=== PATIENT | female | born 1970 | race Caucasian/White ===

== ENCOUNTER 2017-10-24 06:21 | Day surgery (SDC) | payer SELFPAY ==
[2017-10-23 09:05] VITALS: BMI 27.4
[2017-10-24] MEDS ORDERED: EPINEPHrine/PF 1 MG/1 ML (1:1,000) AMPULE ONE (07:16)
[2017-10-24] MEDS ORDERED: LIDOCAINE HCL 1%, 10 MG/ML (20ML VIAL) ONE (07:16)
[2017-10-24] MEDS ORDERED: ceFAZolin SODIUM 1 GM VIAL ONE ×3 (07:19→12:59)
[2017-10-24] MEDS ORDERED: BUPIVACAINE HCL/PF 0.25% (2.5MG/ML) 10 ML VIAL ONE (07:28)
[2017-10-24] MEDS ORDERED: BUPIVACAINE HCL/PF 0.5% (5MG/ML) 10 ML VIAL ONE (07:28)
[2017-10-24] MEDS ORDERED: ROCURONIUM BROMIDE 50 MG/5 ML VIAL ONE ×2 (07:55→09:34)
[2017-10-24] MEDS ORDERED: PROPOFOL 20 ML ONE (07:55)
[2017-10-24] MEDS ORDERED: MIDAZOLAM HCL 2 MG/2 ML SINGLE DOSE VIAL ONE (07:55)
[2017-10-24] MEDS ORDERED: SCOPOLAMINE HYDROBROMIDE 1 PATCH PATCH.TD72 ONE (07:55)
[2017-10-24] MEDS ORDERED: LIDOCAINE HCL/PF 2% SDV 5ML VIAL ONE (07:56)
[2017-10-24] MEDS ORDERED: HEPARIN NA (PORCINE) 5,000 UNITS/ML 1ML VIAL ONE (08:42)
[2017-10-24] MEDS ORDERED: ceFAZolin SODIUM 1 GM VIAL IVPB ONE ×3 (08:50→12:59)
[2017-10-24] MEDS ORDERED: SODIUM CHLORIDE 0.9% P/F 10 ML VIAL IJ ONE (08:50)
[2017-10-24] MEDS ORDERED: DEXAMETHASONE SOD PHOSPHATE 4 MG/1 ML VIAL ONE ×2 (08:56→14:06)
[2017-10-24] MEDS ORDERED: GENTAMICIN SO4 80 MG/2 ML VIAL ONE (09:04)
[2017-10-24] MEDS ORDERED: GENTAMICIN SO4 80 MG/2 ML VIAL IVPB ONE (12:30)
[2017-10-24] MEDS ORDERED: ACETAMINOPHEN INJECTION 100 ML IVPB ONE (12:54)
[2017-10-24] MEDS ORDERED: DESFLURANE GAS 240 ML BOTTLE IH ONE (13:19)
[2017-10-24] MEDS ORDERED: GLYCOPYRROLATE 0.2 MG/1 ML VIAL ONE (14:05)
[2017-10-24] MEDS ORDERED: NEOSTIGMINE METHYLSULFATE 0.5 MG/ML - 10 ML MDV ONE (14:07)
[2017-10-24] MEDS ORDERED: ONDANSETRON 4 MG/2 ML VIAL IVPB PRN (14:40)
[2017-10-24] MEDS ORDERED: ONDANSETRON 4 MG/2 ML VIAL IVPUSH PRN (14:40)
[2017-10-24] MEDS ORDERED: PROMETHAZINE HCL 25 MG/1 ML VIAL IVPUSH PRN (14:40)
[2017-10-24] MEDS ORDERED: LACTATED RINGERS SOLUTION 1,000 ML IV SCH (14:45)
--- NOTE | 2017-10-24 14:45 | OP ---
Operative Note - Note: Operative Date: 10/24/17 Pre-Operative Diagnosis: abdominal and breast deformity Operation: bilateral revision of breast augmentation with abdominoplasty Findings: above Post-Operative Diagnosis: Same as Pre-op Surgeon: Hermes Flores Anesthesia: General
[2017-10-24] MEDS ORDERED: morphine SULFATE 4 MG/ML VIAL ONE (17:33)
[2017-10-24] MEDS: morphine CARPU-JECT 10 MG/1 ML DISP.SYRIN IVPUSH PRN (17:35)
[2017-10-24] MEDS: CEFAZOLIN 1 GM/D5W 1 GM/50 ML BAG IVPB SCH ×2 (18:30→20:09)
[2017-10-24] MEDS: LACTATED RINGERS SOLUTION 1,000 ML IV SCH (20:08)
[2017-10-24] MEDS: oxyCODONE HCL 5 MG TABLET PO PRN (20:09)
[2017-10-25] MEDS: oxyCODONE HCL 5 MG TABLET PO PRN ×3 (00:09→10:36)
[2017-10-25] MEDS: CEFAZOLIN 1 GM/D5W 1 GM/50 ML BAG IVPB SCH ×2 (02:57→08:03)
[2017-10-25] MEDS: HEPARIN NA (PORCINE) 5,000 UNITS/ML 1ML VIAL SQ SCH ×2 (06:25→09:44)
[2017-10-25] MEDS ORDERED: morphine SULFATE 4 MG/ML VIAL IVPUSH PRN (07:22)
[2017-10-25] MEDS: morphine CARPU-JECT 10 MG/1 ML DISP.SYRIN IVPUSH PRN (07:28)
[2017-10-25] MEDS: LACTATED RINGERS SOLUTION 1,000 ML IV SCH (07:59)
--- NOTE | 2017-10-25 08:47 | PN ---
Progress Note (short form) - Note Progress Note: All tissues viable, healing well, ambulating now, using IS, VSS AF KRISTI's thin and functioning. OK for discharge with instructions
[2017-10-25] MEDS ORDERED: PATIENT'S OWN MEDICATION (NON-FORMULARY) (Esomeprazole Magnesium [Nexium 24hr] 20 MG) PO SCH (10:00)
[2017-10-25] MEDS ORDERED: PANTOPRAZOLE 20 MG TABLET (FP) PO SCH (10:00)
[2017-10-25] MEDS ORDERED: SODIUM CHLORIDE 1,000 ML IV ONE (10:15)
[2017-10-25 11:14] VITALS: BP 109/66; PULSE 82; TEMP 98.4
--- NOTE | 2017-10-25 12:05 | OP ---
DATE OF OPERATION: 10/24/2017 TITLE OF PROCEDURE: Abdominoplasty with bilateral flank liposuction, bilateral breast implant capsulotomy with capsular revision. ATTENDING SURGEON: Hermes Flores MD ANESTHESIA: General endotracheal. PREOPERATIVE DIAGNOSIS: Breast and abdomen deformity. Patient is seen in the holding area, marked of all incisions and resulting scars, awake and aware of all incisions and resulting scars. Risks, benefits, and alternatives to the procedure are fully discussed, understood, agreed to proceed. Patient is given a gram of Ancef preoperatively. She is given 5000 units of subcutaneous heparin preoperatively. TEDs and sequential compression stockings are applied. Patient is then brought to the operating room and placed in supine position. Her position is carefully checked by surgical and anesthesia teams. A Klein catheter is placed, which is removed at the end of the procedure. The patient is then prepped and draped in standard surgical fashion. A timeout is called. Patient, procedure, site, and side are verified. DESCRIPTION OF PROCEDURE: The marked infrapannicular incision is made and dissection carried down to the level of the abdominal wall fascia. At this level, dissection is continued to the level of the umbilicus. The umbilicus is then circumcised and developed on a fibrofatty stalk. The flap of the abdominoplasty is then elevated to the costal margins bilaterally and the xiphoid process in the midline. At this point, a midline plication is then performed with a series of interrupted, buried 1 Prolene figure-of-8 suture both above and below the umbilicus. This is followed by a No. 1 Prolene running, locking, reinforcing suture both above and below the umbilicus. Several 0 Prolene interrupted figure-of-8 sutures are then placed at white tension points. The endpoint is an even-tension, smooth, uniform contour to the abdomen. Hemostasis was meticulously achieved. The subscarpal fat is then trimmed with facelift scissors for an even abdominoplasty flap. Hemostasis once again achieved. Copious irrigation of normal saline is performed. The patient is brought to a 30-degree flexed position where the abdominoplasty flap is transposed. Excess skin and fat are excised with the skin tailor tacked location for umbilical translocation is marked. A Star Trek pattern defect is made in the abdominoplasty flap. The umbilicus is converted into a Star Trek pattern where the inferior 6 o'clock notch of the abdominoplasty defect is then inset into the 6 o'clock notch of the umbilicus. The inset in the umbilicus performed with a series of interrupted buried deep dermal 3-0 Monocryl suture, followed by a running 4-0 nylon suture. Size 10 flat KRISTI drains are brought out through the lateral extents of the incisions. This is done with the right drain along the superior recess of the wound and the left drain along the inferior recess of the wound. They were secured with 3-0 silk drain sutures. Closure of the abdominoplasty flap was then performed with a series of interrupted superficial fascial system, buried 2-0 Vicryl suture, followed by a series of interrupted buried deep dermal 3-0 Monocryl suture. Prior to final closure, liposuction is performed of bilateral flanks. The liposuction is done with first wetting solution of a liter of normal saline, 1 ampule of 1:1000 epinephrine, and 20 mL of 1% lidocaine plain. A total of 300 mL is infiltrated into each of the flanks. After waiting 15 minutes, liposuction is performed with a 3-mm cannula. Using traditional liposuction system, a total of 200 mL is aspirated from each flank. Endpoint is smooth, even contour. Final closure of the abdominoplasty is made with a running 3-0 Monocryl suture. Several 5-0 nylon sutures are used to perfect the alignment of the skin edges. The breasts are re-prepped with Betadine, gloves are changed, and attention is then directed toward the bilateral breasts. It is noted that the right breast is more ptotic and with an inferior malposition of the implant. An incision is made first on the right side where the incision is made along the existing scar of the previous vertical mastopexy incision. Dissection is carried down to the level of the periprosthetic capsule. A capsulotomy is performed. The implant is delivered from the capsule. This is found to be Natrelle style 20, high profile, 800-mL, smooth, round silicone gel implant. The implant is preserved in sterile saline, triple-antibiotic solution which is a combination of 1 g of Ancef and 80 mg of gentamicin. An attempt to augment her projection as per her request was made with a new Natrelle style SRX-800 mL silicone gel, smooth, round implant. This, using a Croft funnel, is placed sterilely into the pocket. However, the narrower-base diameter of the implant leaves a very distorted appearance with inadequate fill of the medial pocket, and it is determined that this looks worse than the previous 800-mL implant that the patient previously had. The SRX implant is removed. It is kept on the table. The decision is made to maintain the patient's existing style 20, 800-mL implants as this is the largest available manufactured size, and the patient does need the wider-base diameter. With the skin tailor tacked, a mirror-image procedure is performed on the contralateral side. Likewise, a style 20, 800-mL, smooth, round silicone gel implant is delivered from the capsule atraumatically. An inferolateral capsulorrhaphy is performed with capsular scoring and a series of 2-0 PDS figure-of-8 capsulorrhaphy sutures inferolaterally. Additionally, a superomedial capsulotomy is performed to allow for more medial pole fullness. This is performed in a mirror-image fashion bilaterally. With the implants replaced into the pockets using the Croft funnel and sterile technique, the patient is brought to a seated upright position. The symmetry of size, shape, and position was found to be excellent. At this point, the closure of the capsule is performed likewise with a series of uncnur-rh-tukfr 2-0 PDS suture. This is done after copious irrigation of the capsules with the antibiotic solution. The glandular tissue is repaired with a series of interrupted 3-0 Monocryl suture. Skin is then repaired first with a series of interrupted buried deep dermal 3-0 Monocryl suture, followed by a running subcuticular 3-0 Monocryl suture. Dressings are placed with 1/2-inch Steri-Strips along the abdomen and the breasts, Xeroform gauze in the umbilicus, ABD gauze on the abdomen and breasts. A laterally-supportive surgical bra is applied. An abdominal binder is applied. Patient is woken from anesthesia, Klein catheter is removed, transferred to Recovery without complication. Rivka [id number]
--- NOTE | 2017-10-28 08:30 | PATH ---
Surgical Pathology Report Patient Name: MIGUELITO BUTLER [facility]. Rec. #: [id number] /Age/Gender: 1970 (Age: 46) / F Account: [id number] Location: AMBULATORY SURG Taken: 10/24/2017 Received: 10/27/2017 Reported: 10/28/2017 Physicians: Hermes Flores Specimen(s) Received ABDOMINAL SKIN AND TISSUE Clinical History Cosmetic Final Diagnosis SKIN AND SOFT TISSUE, ABDOMEN, ABDOMINOPLASTY: UNREMARKABLE SKIN AND SUBCUTANEOUS ADIPOSE TISSUE (GROSS ONLY). Electronically Signed Edgar Duenas M.D. Gross Description Received in formalin labeled "abdominal skin and tissue," is a 624 g, 26.5 x 12.5 x 4.5 cm aggregate of two hagan, triangular, unoriented portions of skin with underlying soft tissue. The epidermal surfaces are unremarkable. Sectioning reveals unremarkable yellow, lobulated adipose tissue. No lesions are identified. No sections are submitted, gross only. /10/27/2017 saudi/10/27/2017
== END 2017-10-25 12:06 | disposition home or self-care (01) ==
LOC: JASUSAT 06:21 → J8W 17:15 → JASUSAT 10-25 12:06
PROVIDERS: ATTEND Plastic Surgery
PROC: 0HNV0ZZ Release Bilateral Breast, Open Approach (ICD-10-PCS; 2017-10-24)
PROC: 0JB80ZZ Excision of Abdomen Subcutaneous Tissue and Fascia, Open Approach (ICD-10-PCS; principal; 2017-10-24 08:00)
DX: N65.0 Deformity of reconstructed breast (principal); M95.8 Other specified acquired deformities of musculoskeletal system
CPT/HCPCS: 82962; 84703; 88305-TC; 94760; J0131; J1644; J7030

== ENCOUNTER 2018-05-18 05:27 | Day surgery (SDC) | payer BC, OTHER ==
[2018-05-15 12:36] VITALS: BMI 28.3
[2018-05-18] MEDS ORDERED: ACETAMINOPHEN 325 MG TABLET (FP) PO PRN (14:23)
[2018-05-18] MEDS ORDERED: IBUPROFEN 800 MG/8 ML IJ IVPB PRN (14:23)
--- NOTE | 2018-05-18 14:25 | HP ---
History & Physical Update - History History: No Change - Physical Physical: No Change - Assessment Assessment: No Change - Plan Plan: No Change (Agree with H&P from 05/13/2018 . Assessment: Pt with AUB and intracavitary fibroid - for hysteroscopic myomectomy, suction D&C. Risks/ benefits/alternatives to procedure discussed with patient in detail. Risks including bleeding/infection/uterine perforation explained. Questions answered. Consents from 05/13/18 reconfirmed.)
[2018-05-18] MEDS ORDERED: LACTATED RINGERS SOLUTION 1,000 ML IV SCH ×2 (14:30→16:45)
[2018-05-18] MEDS ORDERED: KETOROLAC TROMETHAMINE 30 MG/1 ML VIAL ONE (15:32)
[2018-05-18] MEDS ORDERED: LIDOCAINE HCL/PF 2% SDV 5ML VIAL ONE (15:32)
[2018-05-18] MEDS ORDERED: DEXAMETHASONE SOD PHOSPHATE 4 MG/1 ML VIAL ONE (15:32)
[2018-05-18] MEDS ORDERED: PROPOFOL 20 ML ONE ×2 (15:33)
[2018-05-18] MEDS ORDERED: MIDAZOLAM HCL 2 MG/2 ML SINGLE DOSE VIAL ONE ×2 (15:33→15:35)
--- NOTE | 2018-05-18 16:32 | OP ---
Operative Note - Note: Operative Date: 05/18/18 (dictation [id number]) Pre-Operative Diagnosis: submucosal fibroid, AUB Operation: hysteroscopic myomectomy, suction D&C Findings: intracavitary (Type 0) fibroid no other findings/abnormalities Post-Operative Diagnosis: Same as Pre-op Surgeon: Nhi Oleary Anesthesiologist/WELFARE SUPERVISOR: Romel Rutledge Anesthesia: MAC Specimens Removed: uterine fibroid Estimated Blood Loss (mls): 25 Drains, Volume Out (mls): 300 (300cc fluid defecit)
[2018-05-18] MEDS ORDERED: oxyCODONE HCL 5 MG TABLET PO PRN (16:33)
[2018-05-18] MEDS ORDERED: ONDANSETRON 4 MG/2 ML VIAL IVPUSH PRN (16:33)
[2018-05-18] MEDS ORDERED: PROMETHAZINE HCL 25 MG/1 ML VIAL IVPB PRN (16:33)
[2018-05-18] MEDS ORDERED: ACETAMINOPHEN 1000 MG/100 ML VIAL (NON FORMULARY) IVPB ONE (16:34)
[2018-05-18] MEDS ORDERED: ACETAMINOPHEN INJECTION 100 ML IVPB ONE (16:49)
[2018-05-18 17:36] VITALS: TEMP 98.2
[2018-05-18 18:18] VITALS: BP 140/80; PULSE 74
--- NOTE | 2018-05-18 20:55 | OP ---
DATE OF OPERATION: DATE OF DICTATION: 05/18/2018 PREOPERATIVE DIAGNOSIS: Abnormal uterine bleeding and intracavitary uterine fibroid. POSTOPERATIVE DIAGNOSIS: Abnormal uterine bleeding and intracavitary uterine fibroid. PROCEDURE: Hysteroscopic myomectomy, suction dilation and curettage. SURGEON: Nhi Oleary DO ANESTHESIA: MAC anesthesia by Dr. Romel Rutledge COMPLICATIONS: None. ESTIMATED BLOOD LOSS: 25 mL. FLUID DEFICIT: Approximately 300 mL normal saline. Sponge and instrument count correct. DISPOSITION: Stable to PACU. BRIEF HISTORY: The patient is a 47-year-old female who had been seen in the office with complaints of heavy, long menstrual bleeding. Was noted to have a submucosal uterine fibroid noted on ultrasound. The patient was counseled on her options, and she elected to undergo a hysteroscopic resection of the fibroid. The patient was then consented for the procedure on May 13, 2018. DESCRIPTION OF PROCEDURE: The patient was admitted to [facility] on May 18, 2018. Consents were re-confirmed. The patient was taken to the operating room and given anesthesia by Dr. Romel Rutledge and placed in the dorsal lithotomy position. A hard time-out was performed. A speculum was placed inside the vagina. The anterior lip of the cervix was grasped with a tenaculum, and the cervix was dilated to accommodate an operative hysteroscope. This was advanced to the fundus of the uterus. Bilateral tubal ostia were noted, and a large fundal, approximately 2- to 3-cm uterine fibroid was appreciated. This was resected with a resectoscope under direct visualization on several passes until the entire fibroid was removed. Final look with the camera after resection revealed no evidence of uterine trauma or uterine perforation. Suction dilation and curettage was performed at the end of the case. Specimens were sent to Pathology for evaluation. Instruments were removed from the vagina. All counts were reported to be correct. The patient tolerated the procedure well and is recovering in stable condition in the PACU at the time of this dictation. NHI OLEARY DO /[id number]
--- NOTE | 2018-05-20 18:34 | PATH ---
Surgical Pathology Report Patient Name: MIGUELITO BUTLER [facility]. Rec. #: [id number] /Age/Gender: 1970 (Age: 47) / F Account: [id number] Location: [facility] SURGICAL Taken: 05/18/2018 Received: 05/19/2018 Reported: 05/20/2018 Physicians: Nhi Oleary M.D. Specimen(s) Received UTERINE FIBROID Clinical History Submucosal fibroid Final Diagnosis UTERUS, FIBROID, HYSTEROSCOPIC MYOMECTOMY: FRAGMENTS OF LEIOMYOMA AND SCANT WEAKLY PROLIFERATIVE ENDOMETRIUM. Electronically Signed Rianna Ramachandran M.D. Gross Description Received in formalin labeled "uterine fibroid" are multiple irregular fragments of pink-hagan fibrous tissue consistent with fibroids measuring 5 x 3 x 2 cm in aggregate. The entire specimen is submitted in 4 cassettes. MLSZ/05/19/2018 sanml/05/19/2018
== END 2018-05-18 18:15 | disposition home or self-care (01) ==
LOC: JASU-SURG 05:27
PROVIDERS: ATTEND Obstetrics & Gynecology
PROC: 0UJD8ZZ Inspection of Uterus and Cervix, Via Natural or Artificial Opening Endoscopic (ICD-10-PCS; 2018-05-18)
PROC: 0UB98ZZ Excision of Uterus, Via Natural or Artificial Opening Endoscopic (ICD-10-PCS; principal; 2018-05-18 14:30)
PROC: 0UDB7ZX Extraction of Endometrium, Via Natural or Artificial Opening, Diagnostic (ICD-10-PCS; 2018-05-18 14:30)
DX: D25.9 Leiomyoma of uterus, unspecified (principal); N93.9 Abnormal uterine and vaginal bleeding, unspecified
CPT/HCPCS: 36415; 84703; 86850; 86900; 86901; 88305-TC; 94760; J0131